=== PATIENT | female | born 1965 | race Two or more races ===

== ENCOUNTER 2021-10-21 06:08 | Day surgery (SDC) | payer OTHER | END 2021-10-21 10:00 | disposition home or self-care (01) | LOC: AMB-ENDOS 06:08 → CIR.AMB 13:30 → AMB-ENDOS 13:30 | PROVIDERS: ATTEND Surgery | DX: D12.2 Benign neoplasm of ascending colon (principal); K59.09 Other constipation; Z80.0 Family history of malignant neoplasm of digestive organs; I10 Essential (primary) hypertension ==